=== PATIENT | male | born 1950 | race American Indian/Alaskan Native ===

== ENCOUNTER 2019-07-21 10:03 | Outpatient (CLI) | payer OTHER ==
--- NOTE | 2019-07-21 13:49 | Cat Scan Report ---
CT of the abdomen and pelvis without contrast INDICATION: Staging of prostate carcinoma COMPARISON: None FINDINGS: There is minimal basilar atelectasis. No basilar pulmonary nodules are seen however. The ga llbladder wall is calcified. The liver, spleen, pancreas and adrenal glands are all grossly normal. T here is a 2 mm stone in the right upper pole as well and is a 2.7 cm left renal cyst. No biliary tree dilation. In particular there is no adenopathy in the upper abdomen. No ascites or carcinomatosis. T here is a small 3.4 x 3.2 cm saccular infrarenal aortic aneurysm. CT of the pelvis shows moderate vascular calcification without iliac artery aneurysm. There is likely flow significant stenosis in the proximal aspect of the left common iliac artery. There is no pelvic or inguinal adenopathy. Prostate is only minimally enlarged. Bladder wall is mildly thickened diffus supriya. The periprostatic fat is intact. No pelvic or inguinal adenopathy. No skeletal metastases are se en. IMPRESSION: Incidental findings as described but no metastatic prostate carcinoma identified. Automated exposure control was utilized to diminish radiation dose. Signer Name: Sean Bowen MD Signed: 07/21/2019 1:44 PM Workstation Name: [email or web address]
--- NOTE | 2019-07-21 13:57 | Nuclear Medicine Report ---
NUCLEAR MEDICINE BONE SCAN, WHOLE BODY INDICATION: MALIGNANT NEOPLASM OF PROSTATE. TECHNIQUE: 26.3 mCi of Tc-99m MDP were injected IV. Whole body images were obtained. COMPARISON: Correlation made with recent CT of the abdomen and pelvis on 07/21/2019. There is no previous bone sc an available.. FINDINGS: Skeletal Structures: There is focal asymmetric uptake in right anterior ribs, likely the right anteri or fourth and fifth ribs.. There is no additional focal abnormal uptake in the axial skeleton. There is some uptake in the left calf which appears to be in the soft tissues and may indicate areas of act tristen atherosclerotic plaque formation. Soft Tissues: Normal. Kidneys: Normal, symmetric activity. Additional Findings: None. IMPRESSION: 1. Focal uptake in the left anterior fourth and fifth ribs is in a pattern most likely suggesting rib fractures. CT of the chest might be considered to evaluate for any underlying bone lesion in those r egions. 2. No other scintigraphic evidence of osseous metastatic disease. Signer Name: Arnoldo Ramírez MD Signed: 07/21/2019 1:53 PM Workstation Name: [id number]
== END 2019-07-21 10:04 | disposition home or self-care (01) ==
LOC: NM 10:03
PROVIDERS: ATTEND Urology
DX: C61 Malignant neoplasm of prostate (principal)
CPT/HCPCS: 74176; 78306; A9503

== ENCOUNTER 2019-08-21 11:40 | Outpatient (CLI) | payer OTHER ==
--- NOTE | 2019-08-21 12:53 | XRay Report ---
LEFT RIBS HISTORY: History of prostate cancer and abnormal bone scan. The 07/21/2019 bone scan report describes abnormalities of right ribs 3 and 4 in the body and left rib abnormalities in the impression. COMPARISON: 07/21/2019 bone scan TECHNIQUE: 2 views of the left ribs were obtained. FINDINGS: Bones: No left rib abnormalities are identified. However, deformities of right ribs 3 and 4 are consi stent with remote healed rib fractures. No suspicious bone lesions are identified. Joint spaces: Maintained. Soft tissues: No significant abnormality. Additional findings: None. IMPRESSION: 1. Remote healed fractures of right ribs 3 and 4. 2. Normal left ribs. Signer Name: Lux Cerda MD Signed: 08/21/2019 12:49 PM Workstation Name: [id number]
== END 2019-08-21 11:41 | disposition home or self-care (01) ==
LOC: XRAY 11:40
PROVIDERS: ATTEND Urology
DX: C61 Malignant neoplasm of prostate (principal)